=== PATIENT | female | born 1975 | race Two or more races ===

== ENCOUNTER 2023-11-17 21:41 | Inpatient (IN) | payer MEDICAID, OTHER ==
[~2023-11-17] VITALS: Ht 175.3 cm; Wt 91.2 kg
[2023-11-17 23:27] LABS: Basophils # (auto) 0 10 ^3/uL (0-0.2); Basophils % (auto) 0.4 % (0.0-2.0); Eosinophils # (auto) 0.1 10 ^3/uL (0-0.8); Eosinophils % (auto) 0.8 % (0.0-7.0); Hematocrit 44.4 % (36.0-46.0); Hemoglobin 15.5 g/dL (12.2-16.2); Lymphocytes # (auto) 3.5 10 ^3/uL (0.4-5.4); Lymphocytes % (auto) 32.5 % (10.0-50.0); Mean Corpuscular Hemoglobin 32.6 pg (28.0-32.0); Mean Corpuscular Hgb Conc. 34.9 g/dL (32.0-36.0); Mean Corpuscular Volume 93.4 fL (80.0-100.0); Monocytes # (auto) 0.9 10 ^3/uL (0-1.3); Monocytes % (auto) 7.9 % (0.0-12.0); Neutrophils # (auto) 6.3 10 ^3/uL (1.6-8.6); Neutrophils % (auto) 58.4 % (37.0-80.0); Nucleated Red Blood Cells % 0.1 %; Platelet Count (auto) 187 10^3/uL (140-450); Red Blood Cells 4.75 10^6/uL (4.0-5.20); Red Cell Distribution Width 12.9 % (11.8-14.3); White Blood Cell 10.7 10^3/uL (4.4-10.8)
[2023-11-17 23:43] LABS: INR 1.08 (0.9-1.15); Prothrombin Time 11.4 sec (9.3-11.8)
[2023-11-17 23:46] LABS: Alanine Aminotransferase 38 U/L (7-40); Albumin 3.8 g/dL (3.2-4.8); Alkaline Phosphatase 54 U/L (46-116); Anion Gap 4 (5-15); Aspartate Aminotransferase 47 U/L (13-40); BUN/Creatinine Ratio 30.5 (10.0-20.0); Bilirubin, Total 0.6 mg/dL (0.2-1.0); Blood Urea Nitrogen 25 mg/dL (9-23); Calcium 9.4 mg/dL (8.7-10.4); Carbon Dioxide 30 mmol/L (20-30); Chloride 103 mmol/L (98-107); Glucose 100 mg/dL (74-106); Potassium 3.7 mmol/L (3.5-5.1); Sodium 137 mmol/L (136-145); Total Protein 6.3 g/dL (5.7-8.2)
[2023-11-17 23:50] VITALS: PULSE 98; RESP 29; O2SAT 98
[2023-11-17] MEDS: cefTRIAXone 1GM/50ML D5W 50 ML IV ONE (23:52)
[2023-11-17] MEDS: methylPREDNISolone SOD SUCC 125 MG/2 ML VL IV ONE (23:52)
[2023-11-18] VITALS (7 sets, daily range): BP systolic 126–129; BP diastolic 80–82; PULSE 77–85; RESP 12–24; TEMP 97.9–98.2; O2SAT 2–98
[2023-11-18] MEDS: ALBUTEROL SULF 2.5 MG/0.5ML(0.5%) NEB SOLN NEB ONE ×2 (00:04→03:21)
[2023-11-18] MEDS: IPRATROPIUM BROM 0.5 MG/2.5ML INH SOL NEB ONE ×2 (00:04→03:21)
[2023-11-18] MEDS: IPRATROPIUM BROM 0.5 MG/2.5ML INH SOL ONE (00:05)
[2023-11-18] MEDS: ALBUTEROL SULF 2.5 MG/0.5ML(0.5%) NEB SOLN ONE (00:05)
[2023-11-18 01:15] LABS: Urine Bacteria FEW /hpf (None Seen); Urine Blood 3+ /uL (Negative); Urine Budding Yeast MODERATE /hpf (None Seen); Urine Clarity Turbid (Clear); Urine Color Light-Orange (Yellow); Urine Mucus FEW (None Seen); Urine Protein, UAD 1+ (Negative); Urine Urobilinogen 2 mg/dL (Negative); Urine WBC 272 /hpf (0 - 5); Urine WBC Clumps PRESENT /hpf (None Seen)
[2023-11-18] MEDS: SODIUM CHLORIDE 0.9% 1,000 ML IV ONE (02:07)
[2023-11-18 10:20] LABS: Urine Sperm NONE SEEN /hpf (None Seen)
[2023-11-18] MEDS: cefTRIAXone 1GM/50ML D5W 50 ML IV ONE (11:45)
[2023-11-18] MEDS: LORazepam 2MG/ML-1ML VIAL IV ONE (11:45)
[2023-11-18] MEDS ORDERED: ONDANSETRON HCL 4 MG/2 ML VIAL IV PRN (16:15)
[2023-11-18] MEDS ORDERED: NITROGLYCERIN 0.4 MG SL TAB SL PRN (16:15)
[2023-11-18 16:52] LABS: Base Excess 3.9 mmol/L (-2.0-3.0)
[2023-11-18] MEDS: PANTOPRAZOLE 40 MG/10 ML VIAL INJ IV ONE (16:58)
[2023-11-18] MEDS: methylPREDNISolone SOD SUCC 125 MG/2 ML VL IV SCH (16:59)
[2023-11-18] MEDS: SODIUM CHLORIDE 0.9% 2,000 ML IV ONE (17:13)
[2023-11-18 17:25] LABS: INR 1.11 (0.9-1.15); Prothrombin Time 11.7 sec (9.3-11.8)
[2023-11-18] MEDS: SODIUM CHLORIDE 0.9% 1,000 ML IV SCH (18:25)
[2023-11-18] MEDS: ALBUTEROL SULF 2.5 MG/0.5ML(0.5%) NEB SOLN NEB PRN (21:22)
[2023-11-18] MEDS: IPRATROPIUM BROM 0.5 MG/2.5ML INH SOL NEB PRN (21:22)
[2023-11-19] VITALS (15 sets, daily range): BP systolic 101–129; BP diastolic 57–82; PULSE 76–97; RESP 14–24; TEMP 91–99.2; O2SAT 91–100
[2023-11-19 06:10] LABS: Basophils # (auto) 0 10 ^3/uL (0-0.2); Basophils % (auto) 0.1 % (0.0-2.0); Eosinophils # (auto) 0 10 ^3/uL (0-0.8); Hematocrit 40.7 % (36.0-46.0); Hemoglobin 14.3 g/dL (12.2-16.2); Lymphocytes # (auto) 1.3 10 ^3/uL (0.4-5.4); Mean Corpuscular Hemoglobin 33.1 pg (28.0-32.0); Mean Corpuscular Hgb Conc. 35.2 g/dL (32.0-36.0); Monocytes # (auto) 0.6 10 ^3/uL (0-1.3); Monocytes % (auto) 5.7 % (0.0-12.0); Neutrophils # (auto) 8.7 10 ^3/uL (1.6-8.6); Neutrophils % (auto) 82.2 % (37.0-80.0); Platelet Count (auto) 172 10^3/uL (140-450); Red Blood Cells 4.33 10^6/uL (4.0-5.20); Red Cell Distribution Width 13.1 % (11.8-14.3); White Blood Cell 10.6 10^3/uL (4.4-10.8)
[2023-11-19 06:25] LABS: Alanine Aminotransferase 34 U/L (7-40); Albumin 3.5 g/dL (3.2-4.8); Alkaline Phosphatase 44 U/L (46-116); Anion Gap 2 (5-15); Aspartate Aminotransferase 36 U/L (13-40); BUN/Creatinine Ratio 28.1 (10.0-20.0); Blood Urea Nitrogen 16 mg/dL (9-23); Calcium 9.4 mg/dL (8.7-10.4); Carbon Dioxide 30 mmol/L (20-30); Chloride 104 mmol/L (98-107); Glucose 109 mg/dL (74-106); Potassium 4.1 mmol/L (3.5-5.1); Sodium 136 mmol/L (136-145)
[2023-11-19 06:26] LABS: Bilirubin, Total 0.5 mg/dL (0.2-1.0); Total Protein 5.7 g/dL (5.7-8.2)
[2023-11-19] MEDS: PANTOPRAZOLE 40 MG/10 ML VIAL INJ IV SCH (10:21)
[2023-11-19] MEDS: HYDROcodone-ACET 5/325MG TAB PO PRN (18:58)
[2023-11-19] MEDS: cefTRIAXone 1GM/50ML D5W 50 ML IV SCH (20:56)
[2023-11-19] MEDS: DOCUSATE SOD 100 MG CAP PO PRN (20:56)
[2023-11-20] VITALS (10 sets, daily range): BP systolic 92–108; BP diastolic 50–59; PULSE 65–98; RESP 14–22; TEMP 97.9–98.2; O2SAT 94–98
[2023-11-20] MEDS ORDERED: GABA-1250 PO (11:44)
[2023-11-20] MEDS ORDERED: IPRAAER6 INH (11:44)
[2023-11-21] VITALS (10 sets, daily range): BP systolic 99–117; BP diastolic 52–67; PULSE 60–100; RESP 16–22; TEMP 97.7–98.6; O2SAT 92–100
[2023-11-21] MEDS ORDERED: DOCU-94 PO (07:25)
[2023-11-21] MEDS ORDERED: ARIP10TA29 PO (07:47)
[2023-11-21] MEDS ORDERED: MULT1TAB92 PO (07:47)
[2023-11-21] MEDS ORDERED: MELA5TAB10 PO (07:47)
[2023-11-21] MEDS ORDERED: IPRAAER6 INH (07:47)
[2023-11-21] MEDS ORDERED: HYDR-4902 PO (07:47)
[2023-11-21] MEDS ORDERED: DICY-89 PO (07:47)
[2023-11-21] MEDS ORDERED: TRAZ1TAB12 PO (07:47)
[2023-11-21] MEDS ORDERED: TOLT2CAP PO (07:47)
[2023-11-21] MEDS ORDERED: MELO7.5T7 PO (07:47)
[2023-11-21] MEDS ORDERED: ALBU108A5 IN (07:47)
[2023-11-21] MEDS ORDERED: PRED10TA PO (07:47)
[2023-11-21] MEDS ORDERED: OMEP20TA PO (07:47)
[2023-11-21] MEDS ORDERED: DIVA500T13 PO (07:47)
[2023-11-21] MEDS ORDERED: HYDR200T36 PO (07:47)
[2023-11-21] MEDS ORDERED: DESM0.1T13 PO (07:47)
[2023-11-21] MEDS ORDERED: CALC500C3 PO (07:47)
[2023-11-21] MEDS ORDERED: FLUT0.05 NAS (07:47)
[2023-11-21] MEDS ORDERED: IPRAAER6 IN (07:47)
[2023-11-21] MEDS ORDERED: ALPR0.254 PO (07:47)
[2023-11-21] MEDS ORDERED: LEVO100T8 PO (07:47)
[2023-11-21] MEDS ORDERED: CICL8KIT4 EX (07:47)
[2023-11-21] MEDS ORDERED: GLYC1SOL PO (07:47)
[2023-11-21] MEDS ORDERED: TIOT1AER IN (07:47)
[2023-11-21] MEDS ORDERED: CYCL-611 PO (07:48)
[2023-11-21] MEDS ORDERED: BUDE0.5S IN (07:50)
[2023-11-21] MEDS ORDERED: OXYB5TAB14 PO (07:50)
[2023-11-22] VITALS (10 sets, daily range): BP systolic 92–120; BP diastolic 53–63; PULSE 67–88; RESP 16–21; TEMP 97.9–98.9; O2SAT 94–100
[2023-11-22] MEDS: MORPHINE SULFATE INJ 2 MG/ml SYRG IV PRN (15:36)
[2023-11-23] VITALS (9 sets, daily range): BP systolic 101–113; BP diastolic 59–76; PULSE 73–87; RESP 15–20; TEMP 97.5–97.9; O2SAT 94–99
[2023-11-24 01:00] VITALS: BP 110/70; PULSE 80; RESP 20; TEMP 98; O2SAT 96
[2023-11-24 05:00] VITALS: BP 110/70; PULSE 80; RESP 20; TEMP 97.8; O2SAT 96
[2023-11-24 09:00] VITALS: BP 102/52; PULSE 80; RESP 18; TEMP 97.6; O2SAT 98
[2023-11-24 10:00] VITALS: O2SAT 98
[2023-11-24 12:00] VITALS: BP 105/67; PULSE 78; RESP 18; TEMP 97.4; O2SAT 97
[2023-11-24 16:00] VITALS: BP 95/54; PULSE 65; RESP 18; TEMP 98.4; O2SAT 98
== END 2023-11-24 21:10 | DRG 140 ==
LOC: EDBD 21:41 → ER 21:41 → OVERFLOW 11-18 16:13 → WEST WING 11-18 18:15
PROVIDERS: ADMIT Nurse Practitioner Family; ATTEND Nurse Practitioner Acute Care
DX: J44.1 Chronic obstructive pulmonary disease with (acute) exacerbation (principal); J96.21 Acute and chronic respiratory failure with hypoxia; G81.94 Hemiplegia, unspecified affecting left nondominant side; N39.0 Urinary tract infection, site not specified; J98.11 Atelectasis; M21.372 Foot drop, left foot; E66.3 Overweight; Z68.29 Body mass index [BMI] 29.0-29.9, adult; Z79.899 Other long term (current) drug therapy
CPT/HCPCS: 36415; 36600; 71045; 74176; 80053; 81001; 82805; 83605; 84702; 85025; 85379; 85610; 85730; 87086; 87088; 87186; 94640; 96361; 96365; 96366; 96375; 97110; 97163; 97530; 99291; G0378; J2470